=== PATIENT | female | born 1955 | race Caucasian/White ===

== ENCOUNTER → 2017-12-06 | Outpatient (CLI) | payer OTHER ==
[~2017-12-06] MED LIST: Amoxicillin500 MG PO
[2017-12-08 15:11] LABS: HPV Genotype 16 Not Detected (NOTDET); HPV Genotype 18 Not Detected (NOTDET)
[2017-12-24 09:37] LABS: HPV High Risk Other Not Detected (NOTDET)
== END | disposition home or self-care (01) ==
LOC: LAB 16:48
PROVIDERS: Obstetrics & Gynecology
DX: Z01.419 Encounter for gynecological examination (general) (routine) without abnormal findings (principal)
CPT/HCPCS: 87624; G0123

== ENCOUNTER → 2019-01-27 | Outpatient (CLI) | payer OTHER ==
[2019-01-29 15:06] LABS: HPV 16 Negative (Negative); HPV 18 Negative (Negative); HPV OTHER HR TYPES Negative (Negative)
== END | disposition home or self-care (01) ==
LOC: LAB 09:15 → LAB SHORT 09:15
PROVIDERS: Nurse Practitioner Obstetrics & Gynecology
DX: Z01.419 Encounter for gynecological examination (general) (routine) without abnormal findings (principal)
CPT/HCPCS: 87624; G0123

== ENCOUNTER → 2020-03-22 | Outpatient (CLI) | payer OTHER ==
[2020-03-24 14:08] LABS: HPV 16 Negative (Negative); HPV 18 Negative (Negative); HPV OTHER HR TYPES Negative (Negative)
== END | disposition home or self-care (01) ==
LOC: LAB 16:10 → LAB SHORT 16:10
PROVIDERS: Obstetrics & Gynecology
DX: Z01.419 Encounter for gynecological examination (general) (routine) without abnormal findings (principal)
CPT/HCPCS: 87624; G0123

== ENCOUNTER 2022-06-01 12:06 | Day surgery (SDC) | payer OTHER ==
[~2022-06-01] VITALS: Ht 160 cm; Wt 41.7 kg
[~2022-06-01 12:06] MED LIST changes: +ASPI81CH PO; +B-12500 MC2 PO; +Calcium Carbon500 MG PO; +FISH OIL 1,2001 EAC7 PO; +MULTI-VITAMIN1 EAC2 PO; +RED YEAST RICE PO
--- NOTE | 2022-06-01 13:25 | NUR ---
Ambulatory in Day SurgeryPatient states colon prep results clear. History, Chart, Medications and Allergies reviewed before start of procedure.Pre-Op teaching done. Pt verbalizes understanding. Patient States Post-Procedure ride home has been arranged.
--- NOTE | 2022-06-01 14:27 | NUR ---
06/01/22 1427 Jessa Fisher HISTORY, CHART, MEDICATIONS AND ALLERGIES REVIEWED BEFORE START OF PROCEDURE. PATIENT CONFIRMS NPO STATUS AND AGREES WITH SCHEDULED PROCEDURE. 3-LEAD EKG REVIEWED WITH PHYSICIAN PRIOR TO START OF PROCEDURE. MONITOR INTACT WITH CONTINUOUS PULSE OXIMETRY,CAPNOGRAPHY, 3-LEAD EKG, INTERMITTENT BP. SUPPLEMENTAL O2 TO BE TITRATED THROUGHOUT PROCEDURE TO MAINTAIN O2 SATURATION ABOVE 90%. PATIENT DETERMINED TO BE ASA APPROPRIATE FOR PROPOFOL SEDATION PRIOR TO START OF PROCEDURE BY
--- NOTE | 2022-06-01 14:37 | NUR ---
INTO STEP VSS RECIEVED REPORT. CARE THEN TURNED OVER TO CRISTOBAL DIAZ.
--- NOTE | 2022-06-01 15:10 | NUR ---
Patient up to Ambulate independently. Gait steady. Discharge instructions reviewed with patient. Patient verbalizes understanding. Copy given to patient to take home. Patient States Post-Procedure ride home has been arranged. Discharged via wheelchair to private car for ride home.
== END 2022-06-01 15:10 | disposition home or self-care (01) ==
LOC: ORSCMMR 12:06 → ORD 13:30 → ORSCMMR 13:30
PROVIDERS: Surgery
PROC: 0DBK8ZX Excision of Ascending Colon, Via Natural or Artificial Opening Endoscopic, Diagnostic (ICD-10-PCS; principal; 2022-06-01 13:30)
PROC: 0DBN8ZX Excision of Sigmoid Colon, Via Natural or Artificial Opening Endoscopic, Diagnostic (ICD-10-PCS; principal; 2022-06-01 13:30)
DX: Z12.11 Encounter for screening for malignant neoplasm of colon (principal); C19 Malignant neoplasm of rectosigmoid junction; D12.2 Benign neoplasm of ascending colon; E03.9 Hypothyroidism, unspecified; E78.5 Hyperlipidemia, unspecified; Z79.82 Long term (current) use of aspirin
CPT/HCPCS: 88305; J2704; J7120

== ENCOUNTER 2022-07-11 09:42 | Inpatient (IN) | payer OTHER, MEDICARE ==
[~2022-07-11] VITALS: Ht 160 cm; Wt 40.6 kg
--- NOTE | 2022-07-11 11:29 | NUR ---
Ambulatory in Day Surgery. History, Chart, Medications and Allergies reviewed before start of procedure.
--- NOTE | 2022-07-11 17:21 | NUR ---
PT BROUGHT TO PACU FROM OR. SURGERY OVER FOUR HOURS LONG. PT NOTED TO HAVE CREPITUS SOUNDS WHEN CHEST PALPATED. ANESTHESIA AWARE, PER MD, DUE TO LONG LAPAROSCOPIC PORTION OF THE PROCEDURE. PT EYES, LIPS, AND FACE SWOLLEN, PER ANESTHESIOLOGIST THE PT NEEDS TO REABSORB ALL OF THE CO2. NO FURTHER ORDERS GIVEN. PT SUCTIONED, HAD CLEAR SPUTUM/SALIVA, HOB ELEVATED AND HEAD TURNED TO SIDE. VSS, O2 VIA NONREBREATHER ON 7L THEN REDUCED TO 5L. DUBON SECURED AND DRAINING. INCISION SITES X4 CLOSED AND WITH DERMABOND AND ABD BINDER ON. PT DENIES PAIN AND NAUSEA. WILL CONTINUE TO MONITOR
--- NOTE | 2022-07-11 20:02 | NUR ---
PT ARRIVED TO THE UNIT AT 1924. PT RESTING COMFORTABLY AT THIS TIME. VITALS OBTAINED. PT CURRENTLY NOT ON OXYGEN. PT APPEARS TO BE IN NO DISTRESS. ORIENTED TO ROOM AND CALL LIGHT LEFT IN REACH.
[2022-07-12 04:20] LABS: BASOPHILS ABSOLUTE AUTO 0.01 K/mm3 (0.00-0.23); BASOPHILS PERCENT AUTO 0 % (0-2); EOSINOPHILS PERCENT AUTO 0 % (0-6); Hematocrit 31.1 % (33.0-51.0); Hemoglobin 10.3 g/dL (11.5-16.0); IMMATURE GRAN ABSOLUTE AUTO 0.04 K/mm3 (0.00-0.10); IMMATURE GRAN PERCENT AUTO 1 % (0-1); LYMPHOCYTES ABSOLUTE AUTO 1.11 K/mm3 (0.84-5.20); LYMPHOCYTES PERCENT AUTO 13 % (21-46); MONOCYTES ABSOLUTE AUTO 0.73 K/mm3 (0.16-1.47); MONOCYTES PERCENT AUTO 9 % (4-13); Mean Corpuscular HGB 26.3 pg (26.0-34.0); Mean Corpuscular HGB Conc 33.1 g/dL (31.5-36.5); Mean Corpuscular Volume 80 fL (80-100); Mean Platelet Volume 11.2 fL (9.1-12.4); NEUTROPHILS ABSOLUTE AUTO 6.74 K/mm3 (1.96-9.15); NEUTROPHILS PERCENT AUTO 78 % (41-73); Platelet Count 235 K/mm3 (150-400); RDW Coefficient Variation 14.6 % (11.7-14.2); RDW Standard Deviation 42.5 fL (35.1-46.3); Red Blood Cell Count 3.91 M/mm3 (3.80-5.20); White Blood Cell Count 8.63 K/mm3 (4.00-11.30)
[2022-07-12 04:37] LABS: Albumin, Blood 2.4 g/dL (3.4-5.0); Bilirubin, Total 0.5 mg/dL (0.1-1.0); Bun/Creatinine Ratio 21.4 (12.0-20.0); Calcium, Blood 7.9 mg/dL (8.5-10.1); Creatinine, Blood 0.51 mg/dL (0.40-1.00); Globulin, Blood 2.4 g/dL (2.2-4.0); Potassium, Blood 4.2 mmol/L (3.5-5.5); Total Protein, Blood 4.8 g/dL (6.4-8.2)
--- NOTE | 2022-07-12 04:38 | NUR ---
SHIFT SUMMARY: A&O. 02% REMAINS ABOVE 95% ON ROOM AIR AT THIS TIME. PT HAD MILD CREPITUS NOTED WHEN ARRIVING TO THE FLOOR. REPORTS PASSING GAS AND HAS SCANT LOOSE BM THIS AM. DUBON DC AND PT VOIDING. BLOOD PRESSURE WAS SOFT DURING THE NIGHT, PT REPORTS LOW BP AT BASELINE. PT WAS MONITORED AND BP SEEMS TO BE STABLE AT THIS TIME. NON SYMPTOMATIC, DENYING DIZZINESS. REPORTED NAUSEA WHEN FIRST ARRIVING TO THE FLOOR THAT WAS BRIEF AND HAS SINCE RESOLVED. PT DENYING NAUSEA SINCE. REPORTING SLIGHT TENDERNESS OVER THE ABD. TOLERATING SMALL AMOUNTS OF PO FLUIDS. PT RESTING COMFORTABLY AND HAS NOT C/O PAIN. CALL LIGHT WITHIN REACH.
--- NOTE | 2022-07-12 11:46 | NUR ---
Spiritual Care Request. Pt. is awake in bed and welcomes my visit. Pt. is pleasant and displays evidence of great motivation and engagement in her recovery. Establish rapport and pray with Pt. Pt. verbalized gratitude for the spiritual care visit.
--- NOTE | 2022-07-12 17:02 | NUR ---
SHIFT SUMMARY PT A&OX4, VSS/RA, SOFI PO LOW FIBER DIET, DENIES PAIN, AMBULATING INDEPENDENTLY IN HALLWAY/ROOM/BRP AND UP TO CHAIR T/O SHIFT, VOIDING WELL, LIQUID BMS++. POD1 LEFT HEMICOLECTOMY, INCISIONS W/WOUND GLUE CDI. WILL REPORT TO ONCOMING NOC MELVI.
--- NOTE | 2022-07-13 03:31 | NUR ---
SUMMARY NO NEW ISSUES. PT HAS SLEPT THROUGHOUT THE SHIFT. PT DENIES PAIN. PT HAS BEEN VOIDING AND DENIES ANY NOTED BLOOD. PT CURRENTLY SLEEPING IN NO DISTRESS. CALL LIGHT IN REACH.
--- NOTE | 2022-07-13 17:45 | NUR ---
SHIFT SUMMARY PT A&OX4, VSS/RA, SOFI PO LOW FIBER DIET, PAIN MANAGED WELL WITH TYLENOL PRN, AMBULATING INDEPENDENTLY IN ROOM/HALLWAY/BRP AND UP TO CHAIR, VOIDING WELL, BMs TODAY (1 FORMED/SOFT, OTHERWISE LIQUID). POD2 L HEMICOLECTOMY, INCISIONS WITH WOUND GLUE CDI, ABD BINDER ON. WILL REPORT TO ONCOMING NOC RN.
--- NOTE | 2022-07-14 06:45 | NUR ---
POD 3 S/P COLECTOMY. PT VSS T/O NIGHT. INCISTIONS CDI. PAIN MGD W/TYLENOL W/REP RELIEF. PT SOFI PO, DENIED N/V, REP VOIDING AND PASSING GAS W/O DIFFICULTY.
[2022-07-14] MEDS ORDERED: OXYC5 PO (09:45)
--- NOTE | 2022-07-14 11:49 | NUR ---
discharged DC'D IV, CATHETER INTACT. REVIEWED DC INSTRUCTIONS W/PT; VERBALIZED UNDERSTANDING. PT LEFT UNIT BY AMBULATION, ACCOMPANIED BY [place] HISTORY PROFESSOR CARRYING POSSESSIOINS FOR PT, AND S.O. TO RIDE WAITING OUTSIDE.
== END 2022-07-14 11:46 | disposition home or self-care (01) | DRG 331 ==
LOC: ORSCMMR 09:42 → ORD 11:00 → ORSCMMR 11:00 → SURS 19:31 → ORSCMMR 07-12 13:26 → SURS 07-12 13:26
PROVIDERS: ADMIT Surgery
PROC: 07BB4ZX Excision of Mesenteric Lymphatic, Percutaneous Endoscopic Approach, Diagnostic (ICD-10-PCS; 2022-07-11)
PROC: 0DTG4ZZ Resection of Left Large Intestine, Percutaneous Endoscopic Approach (ICD-10-PCS; principal; 2022-07-11 12:00)
DX: C18.7 Malignant neoplasm of sigmoid colon (principal); E78.5 Hyperlipidemia, unspecified; E05.90 Thyrotoxicosis, unspecified without thyrotoxic crisis or storm; E53.8 Deficiency of other specified B group vitamins; Z98.890 Other specified postprocedural states; Z90.721 Acquired absence of ovaries, unilateral; Z90.89 Acquired absence of other organs; Z79.82 Long term (current) use of aspirin; Z79.899 Other long term (current) drug therapy
CPT/HCPCS: 36415; 80053; 85025; 88305; 88309; A9270; J0171; J0694; J1100; J1650; J1885; J2250; J2405; J2704; J2765; J2795; J3010; J7120

== ENCOUNTER 2023-09-04 06:50 | Day surgery (SDC) | payer OTHER ==
[~2023-09-04] VITALS: Ht 160 cm; Wt 44.6 kg
[~2023-09-04 06:50] MED LIST changes: +OXYC5 PO
[2023-09-04] MEDS ORDERED: ERGO400 (07:05)
[2023-09-04 08:50] VITALS: BP 101/57
== END 2023-09-04 08:40 | disposition home or self-care (01) ==
LOC: ORSCSDS 06:50
PROVIDERS: Surgery
PROC: 0DBK8ZX Excision of Ascending Colon, Via Natural or Artificial Opening Endoscopic, Diagnostic (ICD-10-PCS; principal; 2023-09-04 08:00)
DX: Z85.038 Personal history of other malignant neoplasm of large intestine (principal); D12.2 Benign neoplasm of ascending colon; E78.5 Hyperlipidemia, unspecified; E03.9 Hypothyroidism, unspecified; Z79.82 Long term (current) use of aspirin; Z79.899 Other long term (current) drug therapy
CPT/HCPCS: 88305; J2704; J7120